=== PATIENT | female | born 1970 | race Caucasian/White ===

== ENCOUNTER 2018-01-31 10:56 | Emergency (ER) | payer OTHER ==
[~2018-01-31] VITALS: Ht 165.1 cm; Wt 83.6 kg
[2018-01-31 11:00] VITALS: BP 131/78; PULSE 122; RESP 16; TEMP 102.9; O2SAT 96
[2018-01-31] MEDS ORDERED: ATEN25TA PO (11:02)
--- NOTE | 2018-01-31 11:08 | PD ---
HPI Chief Complaint: Abdominal Pain Time Seen by Provider: 11:00 Travel History International Travel<30 days: No Contact w/Intl Traveler<30days: No Traveled to known affect area: No History of Present Illness HPI 47yo F with no significant PMH presents to the ED with c/o lower abdominal pain for 2 days. Said it is sharp, intermittent and associated with nausea. Said she has been having fever as well. Denies any vomiting, chest pain, sob, dysuria, hematuria, vaginal bleeding or diarrhea. Pt had normal bowel movement today. No exacerbating or alleviating factor. Denies any previous similar pain. PFSH Past Medical History ?: Not Social History Tobacco Use: No Allergies-Medications (Allergen,Severity, Reaction): Coded Allergies: No Known Allergies (Unverified , 01/31/18) Reported Meds & Prescriptions Reported Meds & Active Scripts Active Reported Atenolol 25 Mg Tab 12.5 Mg PO DAILY Review of Systems Except as stated in HPI: all other systems reviewed are Neg Physical Exam Narrative GENERAL: 47yo F in mild distress. SKIN: Focused skin assessment warm/dry. HEAD: Atraumatic. Normocephalic. EYES: Pupils equal and round. No scleral icterus. No injection or drainage. ENT: No nasal bleeding or discharge. Mucous membranes pink and moist. NECK: Trachea midline. No JVD. CARDIOVASCULAR: Regular rate and rhythm. No murmur appreciated. RESPIRATORY: No accessory muscle use. Clear to auscultation. Breath sounds equal bilaterally. GASTROINTESTINAL: Abdomen soft, mild ttp diffusely. No rebound tenderness or guarding. BACK: No CVA tenderness bilaterally. MUSCULOSKELETAL: No obvious deformities. No clubbing. No cyanosis. No edema. NEUROLOGICAL: Awake and alert. No obvious cranial nerve deficits. Motor grossly within normal limits. Normal speech. PSYCHIATRIC: Appropriate mood and affect; insight and judgment normal. Data Data Last Documented VS Vital Signs Date Time Temp Pulse Resp B/P (MAP) Pulse Ox O2 Delivery O2 Flow Rate FiO2 01/31/18 13:05 105 14 107/54 (71) 98 Room Air 01/31/18 12:03 100.7 Orders Orders Complete Blood Count With Diff (01/31/18 11:03) Comprehensive Metabolic Panel (01/31/18 11:03) Lipase (01/31/18 11:03) Urinalysis - C+S If Indicated (01/31/18 11:03) Ct Abd/Pel W Iv Contrast(Rout) (01/31/18 11:03) Ketorolac Inj (Toradol Inj) (01/31/18 11:15) Ed Urine Pregnancytest Poc (01/31/18 11:03) Ondansetron Odt (Zofran Odt) (01/31/18 11:15) Urine Culture (01/31/18 11:10) Iohexol 350 Inj (Omnipaque 350 Inj) (01/31/18 12:49) Acetaminophen (Tylenol) (01/31/18 13:30) Sodium Chlor 0.9% 1000 Ml Inj (Ns 1000 M (01/31/18 13:30) Ceftriaxone Inj (Rocephin Inj) (01/31/18 13:45) Labs Laboratory Tests Test 01/31/18 11:10 White Blood Count 6.0 TH/MM3 Red Blood Count 4.45 MIL/MM3 Hemoglobin 13.9 GM/DL Hematocrit 41.4 % Mean Corpuscular Volume 93.2 FL Mean Corpuscular Hemoglobin 31.4 PG Mean Corpuscular Hemoglobin Concent 33.7 % Red Cell Distribution Width 12.2 % Platelet Count 255 TH/MM3 Mean Platelet Volume 7.8 FL Neutrophils (%) (Auto) 83.9 % Lymphocytes (%) (Auto) 7.8 % Monocytes (%) (Auto) 5.8 % Eosinophils (%) (Auto) 0.8 % Basophils (%) (Auto) 1.7 % Neutrophils # (Auto) 5.1 TH/MM3 Lymphocytes # (Auto) 0.5 TH/MM3 Monocytes # (Auto) 0.3 TH/MM3 Eosinophils # (Auto) 0.0 TH/MM3 Basophils # (Auto) 0.1 TH/MM3 CBC Comment DIFF FINAL Differential Comment Urine Color YELLOW Urine Turbidity CLOUDY Urine pH 7.0 Urine Specific Andreas 1.020 Urine Protein 100 mg/dL Urine Glucose (UA) NEG mg/dL Urine Ketones NEG mg/dL Urine Occult Blood SMALL Urine Nitrite NEG Urine Bilirubin NEG Urine Urobilinogen 0.2 MG/DL Urine Leukocyte Esterase TRACE Urine WBC 6-8 /hpf Urine WBC Clumps FEW Urine Squamous Epithelial Cells > 8 /hpf Urine Transitional Epithelial Cells 0-5 /hpf Urine Bacteria MOD /hpf Urine Hyaline Casts 3-5 /lpf Urine White Blood Cell Casts 0-2 /lpf Urine Oval Fat Bodies Microscopic Urinalysis Comment CULTURE INDICATED Blood Urea Nitrogen 7 MG/DL Creatinine 0.62 MG/DL Random Glucose 128 MG/DL Total Protein 8.0 GM/DL Albumin 3.8 GM/DL Calcium Level 9.1 MG/DL Alkaline Phosphatase 88 U/L Aspartate Amino Transf (AST/SGOT) 9 U/L Alanine Aminotransferase (ALT/SGPT) 18 U/L Total Bilirubin 1.4 MG/DL Sodium Level 138 MEQ/L Potassium Level 3.9 MEQ/L Chloride Level 108 MEQ/L Carbon Dioxide Level 23.0 MEQ/L Anion Gap 7 MEQ/L Estimat Glomerular Filtration Rate 102 ML/MIN Lipase 52 U/L MDM Medical Decision Making Medical Screen Exam Complete: Yes Emergency Medical Condition: Yes Differential Diagnosis Cystitis vs. diverticulitis vs. pancreatitis vs. colitis Narrative Course 47yo F with abdominal pain, fever and nausea. Pt is well appearing but does have fever and tachycardia here. Pt given toradol, NS IVF, acetaminophen and zofran. Pt reevaluated at bedside and feels much better. Abdominal pain and nausea had resolved. HR is now 92bpm. Labs reviewed, no leukocytosis. H/H normal. Lipase low. Bilirubin mildly elevated, likely secondary to dehydration. UA showed WBC 6-8. Moderate bacteria. Pt given ceftriaxone and is now tolerating PO. CT a/p showed nonspecific free pelvic fluid. Small adnexal cyst on the left. Return precautions given. Diagnosis Primary Impression: Cystitis Patient Instructions: General Instructions Departure Forms: Tests/Procedures Additional Instructions: Please follow up with your primary care physician in 2-3 days. Return to the ED if symptoms worsen. Med/Other Pt SpecificInfo: Prescription(s) given Scripts Ondansetron Odt (Zofran Odt) 4 Mg Tab 4 MG SL Q12HR Y for Nausea/Vomiting, #6 TAB 0 Refills Prov: Mohini Kwan DO 01/31/18 Acetaminophen (Tylenol) 325 Mg Tab 650 MG PO Q6H Y for PAIN SCALE 1 TO 4, #20 TAB 0 Refills Prov: Mohini Kwan DO 01/31/18 Sulfamethoxazole-Trimethoprim (Bactrim DS) 800-160 Mg Tab 1 TAB PO BID for Infection, #14 TAB 0 Refills Prov: KwanMohini bai DO 01/31/18 Disposition: 01 DISCHARGE HOME Condition: Stable Mohini Kwan DO January 31, 2018 11:08
[2018-01-31] MEDS ORDERED: ONDANSETRON ODT 4 MG TAB PO ONE (11:15)
[2018-01-31] MEDS ORDERED: KETOROLAC TROMETHAMINE 30 MG/ML (IVP) VIAL IVP ONE (11:15)
[2018-01-31 11:25] LABS: AUTOMATED NEUTROPHIL # 5.1 TH/MM3 (1.8-7.7); BASOPHIL # 0.1 TH/MM3 (0-0.2); BASOPHIL % 1.7 % (0.0-2.0); EOSINOPHIL % 0.8 % (0.0-4.0); HEMATOCRIT 41.4 % (35.0-46.0); HEMOGLOBIN 13.9 GM/DL (11.6-15.3); LYMPH % 7.8 % (9.0-44.0); LYMPHOCYTE # 0.5 TH/MM3 (1.0-4.8); MEAN CELL VOLUME 93.2 FL (80.0-100.0); MEAN CORPUSCULAR HEMOGLOBIN 31.4 PG (27.0-34.0); MEAN CORPUSCULAR HGB CONC 33.7 % (32.0-36.0); MEAN PLATELET VOLUME 7.8 FL (7.0-11.0); MONO % 5.8 % (0.0-8.0); MONOCYTE # 0.3 TH/MM3 (0-0.9); NEUT % 83.9 % (16.0-70.0); PLATELET COUNT 255 TH/MM3 (150-450); RED BLOOD COUNT 4.45 MIL/MM3 (4.00-5.30); RED CELL DISTRIBUTION WIDTH 12.2 % (11.6-17.2)
[2018-01-31 11:27] LABS: BILIRUBIN, URINE NEG (NEG); BLOOD, URINE SMALL (NEG); GLUCOSE,URINE NEG (NEG); KETONE, URINE NEG (NEG); NITRITE,URINE NEG (NEG); URINE COLOR YELLOW (YELLW/STRAW); URINE LEUKOCYTE ESTERASE TRACE (NEG)
[2018-01-31 11:32] LABS: CHLORIDE 108 MEQ/L (98-107); SODIUM (NA) 138 MEQ/L (136-145)
[2018-01-31 11:35] LABS: CALCIUM 9.1 MG/DL (8.5-10.1)
[2018-01-31 11:36] LABS: ALBUMIN 3.8 GM/DL (3.4-5.0); BLOOD UREA NITROGEN 7 MG/DL (7-18); GLUCOSE,RANDOM 128 MG/DL (74-106)
[2018-01-31 11:38] LABS: ALT (GPT) 18 U/L (10-53); AST (GOT) 9 U/L (15-37); WHITE BLOOD CELL CAST, URINE 0-2 /lpf
[2018-01-31 11:39] LABS: BACTERIA, URINE MOD /hpf; CREATININE 0.62 MG/DL (0.50-1.00); GLOMERULAR FILTRATION RATE 102 ML/MIN (>89); SQUAMOUS EPITHELIAL CELL URINE > 8 /hpf (0-5); TRANSITIONAL EPI CELLS, URINE 0-5 /hpf; WHITE BLOOD CELL CLUMPS FEW
[2018-01-31 11:40] LABS: TOTAL BILIRUBIN ADULT 1.4 MG/DL (0.2-1.0)
[2018-01-31 11:41] LABS: ALKALINE PHOSPHATASE 88 U/L (45-117)
[2018-01-31 12:03] VITALS: BP 107/66; PULSE 100; RESP 16; TEMP 100.7; O2SAT 100
[2018-01-31] MEDS ORDERED: IOHEXOL 350 MG/ML 10 ML VIAL (for RAD DIAG) IVCONTRAST ONE (12:49)
--- NOTE | 2018-01-31 13:00 | RADRPT ---
EXAM DATE/TIME: 01/31/2018 12:38 [facility] COMPARISON: No previous studies available for comparison. INDICATIONS : Bilateral lower abdominal pain. IV CONTRAST: 95 cc Omnipaque 350 (iohexol) IV ORAL CONTRAST: No oral contrast ingested. RADIATION DOSE: 15.31 CTDIvol (mGy) MEDICAL HISTORY : Hypertension. SURGICAL HISTORY : IUD. ENCOUNTER: Initial ACUITY: 3 days PAIN SCALE: 3/10 LOCATION: Bilateral lower quadrant TECHNIQUE: Volumetric scanning of the abdomen and pelvis was performed. Using automated exposure control and ad justment of the mA and/or kV according to patient size, radiation dose was kept as low as reasonably achievable to obtain optimal diagnostic quality images. DICOM format image data is available electro nically for review and comparison. FINDINGS: LOWER LUNGS: The visualized lower lungs are clear. LIVER: Homogeneous density without lesion. There is no dilation of the biliary tree. No calcified gallston es. SPLEEN: Normal size without lesion. PANCREAS: Within normal limits. KIDNEYS: Normal in size and shape. There is no mass, stone or hydronephrosis. ADRENAL GLANDS: Within normal limits. VASCULAR: There is no aortic aneurysm. BOWEL/MESENTERY: The stomach, small bowel, and colon demonstrate no acute abnormality. There is no free intraperitone al air or fluid. ABDOMINAL WALL: Within normal limits. RETROPERITONEUM: There is no lymphadenopathy. BLADDER: No wall thickening or mass. REPRODUCTIVE: Intrauterine device in place and a moderately heterogeneous uterus. Small left adnexal cyst. Small abeba ttom of free pelvic fluid. INGUINAL: There is no lymphadenopathy or hernia. MUSCULOSKELETAL: Within normal limits for patient age. CONCLUSION: Nonspecific free pelvic fluid. Small adnexal cyst on the left.. Boo García MD on January 31, 2018 at 12:52 Board Certified Radiologist. This report was verified electronically.
[2018-01-31 13:05] VITALS: BP 107/54; PULSE 105; RESP 14; O2SAT 98
[2018-01-31] MEDS ORDERED: ACETAMINOPHEN 325 MG TAB PO ONE (13:30)
[2018-01-31] MEDS ORDERED: SODIUM CHLOR 0.9% 1000 ML INJ 1,000 ML IV ONE (13:30)
[2018-01-31] MEDS ORDERED: cefTRIAXone INJ 1,000 MG in SODIUM CHLORIDE 0.9% INJ 100 ML IV ONE (13:45)
[2018-01-31] MEDS ORDERED: ZOFR4TAB3 SL (14:31)
[2018-01-31] MEDS ORDERED: BACT800T5 PO (14:31)
[2018-01-31] MEDS ORDERED: TYLE325T PO (14:31)
[2018-01-31 14:40] VITALS: BP 103/65; PULSE 90; RESP 16; O2SAT 98
== END 2018-01-31 15:10 | disposition home or self-care (01) ==
LOC: PHED 10:56
DX: N30.90 Cystitis, unspecified without hematuria (principal); R50.9 Fever, unspecified; R00.0 Tachycardia, unspecified
CPT/HCPCS: 74177; 80053; 81001; 83690; 84703; 85025; 87086; 96365; 96375; 99285; J0696; J1885; J7030; Q9967